=== PATIENT | male | born 2000 | race Two or more races ===

== ENCOUNTER 2023-12-23 09:35 | Emergency (ER) | payer OTHER ==
[~2023-12-23] VITALS: Ht 172.7 cm; Wt 93.0 kg
[2023-12-23 11:18] LABS: Basophils # (auto) 0 10 ^3/uL (0-0.2); Basophils % (auto) 0.5 % (0.0-2.0); Eosinophils # (auto) 0.1 10 ^3/uL (0-0.8); Eosinophils % (auto) 1.3 % (0.0-7.0); Hematocrit 42.1 % (41.0-53.0); Hemoglobin 14.3 g/dL (13.5-17.5); Lymphocytes # (auto) 1.5 10 ^3/uL (0.4-5.4); Lymphocytes % (auto) 21.5 % (10.0-50.0); Mean Corpuscular Hemoglobin 32.4 pg (28.0-32.0); Mean Corpuscular Hgb Conc. 33.9 g/dL (32.0-36.0); Mean Corpuscular Volume 95.6 fL (80.0-100.0); Monocytes # (auto) 0.5 10 ^3/uL (0-1.3); Monocytes % (auto) 7.2 % (0.0-12.0); Neutrophils % (auto) 69.5 % (37.0-80.0); Nucleated Red Blood Cells % 0.1 %; Red Blood Cells 4.41 10^6/uL (4.5-5.90); Red Cell Distribution Width 12.8 % (11.8-14.3); White Blood Cell 7.2 10^3/uL (4.4-10.8)
[2023-12-23 11:25] LABS: Chloride 103 mmol/L (98-107); Potassium 3.7 mmol/L (3.5-5.1); Sodium 137 mmol/L (136-145)
[2023-12-23 11:26] LABS: Anion Gap 8 (5-15); Carbon Dioxide 26 mmol/L (20-30)
[2023-12-23 11:27] LABS: Calcium 9.6 mg/dL (8.5-10.1)
[2023-12-23 11:31] LABS: Blood Urea Nitrogen 10 mg/dL (9-23); Glucose 82 mg/dL (74-106)
[2023-12-23 12:29] LABS: Erythrocyte Sedimentation Rate 15 mm/hr (0-20)
[2023-12-23] MEDS ORDERED: CEPH250C PO (13:54)
[2023-12-23 14:11] VITALS: BP 149/72; PULSE 83; RESP 17; TEMP 98.4; O2SAT 98
== END 2023-12-23 14:13 | disposition home or self-care (01) ==
LOC: ER 09:35
DX: L03.116 Cellulitis of left lower limb (principal); F17.210 Nicotine dependence, cigarettes, uncomplicated; Z98.890 Other specified postprocedural states
CPT/HCPCS: 36415; 73700; 80048; 85025; 85652